=== PATIENT | female | born 1990 | race Caucasian/White ===

== ENCOUNTER → 2017-05-16 | Outpatient (CLI) | payer OTHER ==
[~2017-05-16] MED LIST: METH500T2 PO; SERT100T PO
[2017-05-16 13:23] LABS: PROTEIN/CREATININE RATIO 0.18
== END ==
LOC: LABNPT 11:20
PROVIDERS: ATTEND Obstetrics & Gynecology
DX: O14.03 Mild to moderate pre-eclampsia, third trimester (principal)
CPT/HCPCS: 82570; 84156

== ENCOUNTER 2017-05-18 12:15 | Outpatient (CLI) | payer OTHER ==
[~2017-05-18] VITALS: Ht 162.6 cm; Wt 143.3 kg
[2017-05-18 12:30] VITALS: BP 151/77
[2017-05-18 12:50] VITALS: BP 121/90
[2017-05-18 12:57] LABS: BILIRUBIN,URINE NEGATIVE (NEGATIVE); KETONES,URINE 1+ (NEGATIVE); LEUKOCYTE ESTERASE ,URINE 1+ (NEGATIVE); NITRITE,URINE NEGATIVE (NEGATIVE); PH,URINE 6.5 (5-9); PROTEIN,URINE 1+ (NEGATIVE); UROBILINOGEN,URINE 1 MG/DL (NORMAL)
[2017-05-18 13:00] VITALS: BP 146/70
[2017-05-18] MEDS ORDERED: SERT100T PO (13:00)
[2017-05-18] MEDS ORDERED: INFLUENZA TRIvalent 2017-2018 0.5 ML/45 MCG SYR IM ONE (13:15)
[2017-05-18 13:16] LABS: PROTEIN/CREATININE RATIO 0.16
[2017-05-18 13:23] LABS: BASOPHILS % (AUTO) 0 % (0-10); EOSINOPHILS # (AUTO) 0.2 10^3/uL (0.0-0.3); EOSINOPHILS % (AUTO) 1 % (0-10); LYMPHOCYTES # (AUTO) 1.7 X 10^3 (1.0-4.0); LYMPHOCYTES % (AUTO) 13 % (12-44); MEAN CORPUSCULAR HEMOGLOBIN 30 PG (25-34); MEAN CORPUSCULAR HGB CONC 34 G/DL (32-36); MEAN CORPUSCULAR VOLUME 88 FL (80-99); MEAN PLATELET VOLUME 10.7 FL (7.4-10.4); MONOCYTES % (AUTO) 8 % (0-12); NEUTROPHILS # (AUTO) 9.9 X 10^3 (1.8-7.8); NEUTROPHILS % (AUTO) 78 % (42-75); PLATELET COUNT 347 10^3/uL (130-400); RED BLOOD COUNT 4.29 10^6/uL (4.35-5.85); RED CELL DISTRIBUTION WIDTH 13.7 % (10.0-14.5); WHITE BLOOD COUNT 12.7 10^3/uL (4.3-11.0)
[2017-05-18 13:30] VITALS: BP 128/60
[2017-05-18 13:41] LABS: ALANINE AMINOTRANSFERASE 25 U/L (0-55); ALBUMIN 3.1 GM/DL (3.2-4.5); ANION GAP 10 MMOL/L (5-14); ASPARTATE AMINO TRANSFERASE 19 U/L (5-34); BILIRUBIN,TOTAL 0.4 MG/DL (0.1-1.0); BLOOD UREA NITROGEN 6 MG/DL (7-18); BUN/CREATININE RATIO 10; CALCIUM 8.7 MG/DL (8.5-10.1); CARBON DIOXIDE 21 MMOL/L (21-32); CHLORIDE 107 MMOL/L (98-107); CREATININE SERUM 0.59 MG/DL (0.60-1.30); GFR ESTIMATED > 60; GLUCOSE 132 MG/DL (70-105); LACTATE DEHYDROGENASE 136 U/L (125-220); POTASSIUM 3.8 MMOL/L (3.6-5.0); SODIUM 138 MMOL/L (135-145); TOTAL PROTEIN 6.7 GM/DL (6.4-8.2); URIC ACID 3.8 MG/DL (2.6-7.2)
--- NOTE | 2017-05-21 16:26 | Physician Query-Final Dx ---
JIMI CARTWRIGHT 05/21/17 1626: Clinic Account Progress/Dx Physician Query: Please give diagnosis Date of Service May 18, 2017 at 12:15 ALEXIA SEWELL MD 05/22/17 0742: Clinic Account Progress/Dx DIAGNOSIS: Diagnosis LEXIS JIMI CARTWRIGHT May 21, 2017 16:26 ALEXIA SEWELL MD May 22, 2017 07:42
[2017-05-23] MEDS ORDERED: IBUP-1780 PO (07:48)
[2017-05-23] MEDS ORDERED: DOCU100C37 PO (07:48)
[2017-05-23] MEDS ORDERED: OXYC-465 PO (07:48)
[2017-05-23] MEDS ORDERED: atarax PO (08:10)
== END 2017-05-18 14:00 | disposition home or self-care (01) ==
LOC: WSo 12:15 → LDRP 12:15 → WSo 14:00
PROVIDERS: ATTEND Obstetrics & Gynecology
DX: O13.3 Gestational [pregnancy-induced] hypertension without significant proteinuria, third trimester (principal); Z3A.35 35 weeks gestation of pregnancy
CPT/HCPCS: 36415; 80053; 81000; 82570; 83615; 84156; 84550; 85025; 87088; 99213

== ENCOUNTER 2017-05-22 11:35 | Inpatient (IN) | payer OTHER ==
[2017-05-22] VITALS (24 sets, daily range): BP systolic 124–178; BP diastolic 66–99
[~2017-05-22] VITALS: Ht 162.6 cm; Wt 149.5 kg
[~2017-05-22 11:35] MED LIST changes: -METH500T2 PO
--- NOTE | 2017-05-22 11:48 | History & Physical ---
History and Physical Date Seen by Provider: May 22, 2017 Time Seen by Provider: 11:46 this patient is 26-year-old white female currently at 36-3/7 weeks gestation. She was seen in my clinic on this date with blood pressures of 160s over 110. Complaint of headache and not feeling well. She was sent for my clinic labor and delivery for further evaluation. Patient denies rupture membranes or bleeding. She is morbidly obese. Allergies are to latex Medications are vitamins Medical history, past surgical history, genetic history, family history, and social histories are per the antepartum record HEENT exam is normal Neck supple no lymphadenopathy no thyromegaly Abdomen is markedly morbidly obese nontender. Fundal height is well above the expected for dates due to her body habitus Extremities show no clubbing cyanosis. There is some notable pretibial pitting edema. There is no Homans sign. Pelvic exam is deferred Lab work and vitals are pending Assessment and plan 36-3/7 weeks gestation patient with pretty severe PIH. She has been started on Aldomet but in spite of that her blood pressures have increased. She is being evaluated now for signs symptoms or additional indications of preeclampsia or severe preeclampsia. If that is confirmed we will proceed with her delivery. severe PIH/preeclampsia Allergies and Home Medications Allergies Coded Allergies: latex (Verified Allergy, Mild, 05/18/17) Home Medications Sertraline HCl 100 Mg Tablet, 100 MG PO DAILY, (Reported) ALEXIA SEWELL MD May 22, 2017 11:48
[2017-05-22 12:04] LABS: BASOPHILS % (AUTO) 0 % (0-10); EOSINOPHILS # (AUTO) 0.1 10^3/uL (0.0-0.3); EOSINOPHILS % (AUTO) 1 % (0-10); LYMPHOCYTES # (AUTO) 1.8 X 10^3 (1.0-4.0); LYMPHOCYTES % (AUTO) 13 % (12-44); MEAN CORPUSCULAR HEMOGLOBIN 30 PG (25-34); MEAN CORPUSCULAR HGB CONC 34 G/DL (32-36); MEAN CORPUSCULAR VOLUME 88 FL (80-99); MEAN PLATELET VOLUME 11.2 FL (7.4-10.4); MONOCYTES # (AUTO) 1.2 X 10^3 (0.0-1.0); MONOCYTES % (AUTO) 9 % (0-12); NEUTROPHILS % (AUTO) 76 % (42-75); PLATELET COUNT 332 10^3/uL (130-400); RED BLOOD COUNT 4.26 10^6/uL (4.35-5.85); RED CELL DISTRIBUTION WIDTH 13.9 % (10.0-14.5); WHITE BLOOD COUNT 13.1 10^3/uL (4.3-11.0)
[2017-05-22] MEDS ORDERED: METH500T2 PO (12:12)
[2017-05-22 12:14] LABS: PROTEIN/CREATININE RATIO 0.18
[2017-05-22 12:26] LABS: ALANINE AMINOTRANSFERASE 30 U/L (0-55); ALBUMIN 3.1 GM/DL (3.2-4.5); ANION GAP 9 MMOL/L (5-14); ASPARTATE AMINO TRANSFERASE 20 U/L (5-34); BILIRUBIN,TOTAL 0.3 MG/DL (0.1-1.0); BLOOD UREA NITROGEN 7 MG/DL (7-18); BUN/CREATININE RATIO 11; CALCIUM 8.6 MG/DL (8.5-10.1); CARBON DIOXIDE 21 MMOL/L (21-32); CHLORIDE 108 MMOL/L (98-107); CREATININE SERUM 0.61 MG/DL (0.60-1.30); GFR ESTIMATED > 60; GLUCOSE 97 MG/DL (70-105); LACTATE DEHYDROGENASE 142 U/L (125-220); POTASSIUM 3.7 MMOL/L (3.6-5.0); SODIUM 138 MMOL/L (135-145); TOTAL PROTEIN 6.5 GM/DL (6.4-8.2); URIC ACID 4.1 MG/DL (2.6-7.2)
[2017-05-22] MEDS ORDERED: INFLUENZA TRIvalent 2017-2018 0.5 ML/45 MCG SYR IM ONE (12:45)
[2017-05-22] MEDS ORDERED: ceFAZolin 2 GM/50 ML NS 50 ML IV ONE (17:45)
[2017-05-22] MEDS ORDERED: CITRIC ACID/SOB CIT (BICITRA) 30 ML UDC PO ONE (17:45)
[2017-05-22] MEDS ORDERED: metroNIDAZOLE 500MG/100ML IVPB 100 ML IV ONE (17:45)
[2017-05-22] MEDS ORDERED: METOCLOPRAMIDE INJ 10 MG/2 ML (REGLAN) IV ONE (17:45)
[2017-05-22] MEDS ORDERED: FAMOTIDINE 20MG/2ML IV (PEPCID) IV ONE (17:45)
[2017-05-22] MEDS ORDERED: CATHETER FLUSH 10 ML SYR IV PRN (17:45)
[2017-05-22] MEDS ORDERED: OXYTOCIN/NORMAL SALINE 500 ML IV SCH (17:48)
--- NOTE | 2017-05-22 17:51 | Progress Note-Pre Operative ---
Pre-Operative Progress Note H&P Reviewed The H&P was reviewed, patient examined and no changes noted. Date Seen by Provider: May 22, 2017 Time Seen by Provider: 17:50 Date H&P Reviewed: May 22, 2017 Time H&P Reviewed: 17:50 Pre-Operative Diagnosis: PIH/ labor/previous ALEXIA SEWELL MD May 22, 2017 5:51 pm
--- NOTE | 2017-05-22 17:52 | Progress Note-Post Operative ---
Post-Operative Progess Note Surgeon (s)/Commercial Green Building Designer (s) Surgeon ALEXIA SEWELL MD Commercial Green Building Designer: Sally Greer Pre-Operative Diagnosis PIH/ labor/previous Post-Operative Diagnosis same Procedure & Operative Findings Date of Procedure 05/22/17 Procedure Performed/Findings repeat low transverse delivery Anesthesia Type spinal Estimated Blood Loss Estimated blood loss (mL): 450cc Specimens/Packing Specimens Removed placenta and umbilical cord Packing: none ALEXIA SEWELL MD May 22, 2017 17:52
[2017-05-22] MEDS: LACTATED RINGERS 1,000 ML IV PRN ×2 (17:54→18:15)
[2017-05-22] MEDS ORDERED: LACTATED RINGERS 1,000 ML IV ONE (17:55)
--- NOTE | 2017-05-22 17:55 | Progress Note-Standard ---
Standard Progress Note Progress Notes/Assess & Plan Date Seen by Provider: May 22, 2017 Time Seen by Provider: 17:52 Progress/Assessment & Plan patient now rita every 2 to 4 minutes. she complains of headache. Her blood pressure is up to 150s over 80s. it has been higher than that in clinic today. She did improve some at bed rest. Have her contractions have advanced through the period of observation here delivery. Plan now is to proceed with repeat . Her previous culminated in a at 32 weeks ' gestation due to preeclampsia Vital Signs Date Time Temp Pulse Resp B/P (MAP) Pulse Ox O2 Delivery O2 Flow Rate FiO2 05/22/17 17:15 98.4 20 144/69 Room Air 05/22/17 17:04 109 20 145/75 Room Air 05/22/17 16:49 96 20 144/78 Room Air 05/22/17 16:45 100 20 133/87 Room Air 05/22/17 16:18 125 20 138/71 Room Air 05/22/17 15:50 98 20 140/88 Room Air 05/22/17 15:23 113 20 143/77 Room Air 05/22/17 15:00 86 20 141/78 Room Air 05/22/17 14:31 91 20 144/99 Room Air 05/22/17 14:30 20 Room Air 05/22/17 14:10 97.1 112 20 161/85 Room Air 05/22/17 13:48 89 20 124/89 Room Air 05/22/17 13:32 82 20 136/66 Room Air 05/22/17 13:30 20 Room Air 05/22/17 13:10 97.8 80 20 155/83 Room Air 05/22/17 13:00 81 20 137/94 Room Air 05/22/17 12:30 74 20 132/93 Room Air 05/22/17 12:00 79 20 141/90 Room Air 05/22/17 11:43 98.7 102 20 140/94 Room Air Laboratory Tests Test 05/22/17 11:43 05/22/17 11:55 Range/Units Urine Protein 21 H 6-12 MG/DL Urine Creatinine 114 30-125 MG/DL Urine Protein/Creatinine Ratio 0.18 White Blood Count 13.1 H 4.3-11.0 10^3/uL Red Blood Count 4.26 L 4.35-5.85 10^6/uL Hemoglobin 12.6 11.5-16.0 G/DL Hematocrit 38 35-52 % Mean Corpuscular Volume 88 80-99 FL Mean Corpuscular Hemoglobin 30 25-34 PG Mean Corpuscular Hemoglobin Concent 34 32-36 G/DL Red Cell Distribution Width 13.9 10.0-14.5 % Platelet Count 332 130-400 10^3/uL Mean Platelet Volume 11.2 H 7.4-10.4 FL Neutrophils (%) (Auto) 76 H 42-75 % Lymphocytes (%) (Auto) 13 12-44 % Monocytes (%) (Auto) 9 0-12 % Eosinophils (%) (Auto) 1 0-10 % Basophils (%) (Auto) 0 0-10 % Neutrophils # (Auto) 10.0 H 1.8-7.8 X 10^3 Lymphocytes # (Auto) 1.8 1.0-4.0 X 10^3 Monocytes # (Auto) 1.2 H 0.0-1.0 X 10^3 Eosinophils # (Auto) 0.1 0.0-0.3 10^3/uL Basophils # (Auto) 0.0 0.0-0.1 10^3/uL Sodium Level 138 135-145 MMOL/L Potassium Level 3.7 3.6-5.0 MMOL/L Chloride Level 108 H 98-107 MMOL/L Carbon Dioxide Level 21 21-32 MMOL/L Anion Gap 9 5-14 MMOL/L Blood Urea Nitrogen 7 7-18 MG/DL Creatinine 0.61 0.60-1.30 MG/DL Estimat Glomerular Filtration Rate > 60 BUN/Creatinine Ratio 11 Glucose Level 97 70-105 MG/DL Uric Acid 4.1 2.6-7.2 MG/DL Calcium Level 8.6 8.5-10.1 MG/DL Total Bilirubin 0.3 0.1-1.0 MG/DL Aspartate Amino Transf (AST/SGOT) 20 5-34 U/L Alanine Aminotransferase (ALT/SGPT) 30 0-55 U/L Alkaline Phosphatase 134 40-136 U/L Lactate Dehydrogenase 142 125-220 U/L Total Protein 6.5 6.4-8.2 GM/DL Albumin 3.1 L 3.2-4.5 GM/DL Physical exam is unchanged Assessment and plan 36-3/7 weeks gestation with PIH/preeclampsia. She is also labor and previous . She also is markedly morbidly obese. We will proceed now with repeat delivery. ALEXIA SEWELL MD May 22, 2017 5:55 pm
[2017-05-22] MEDS ORDERED: D5 LR IV SOLUTION 1,000 ML IV ONE (17:56)
[2017-05-22] MEDS ORDERED: KETOROLAC 30 MG/ML VIAL IVP SCH (18:00)
[2017-05-22] MEDS ORDERED: TETANUS,DIPTH,PERTUSS P/F (BOOSTRIX) 0.5 ML VIAL IM ONE (18:00)
[2017-05-22] MEDS ORDERED: ONDANSETRON 4 MG/2 ML (SDV) Z0FRAN IVP PRN (18:00)
[2017-05-22] MEDS ORDERED: MEASLES,MUMPS,RUBELLA 1 EA INJ SC ONE (18:00)
[2017-05-22] MEDS ORDERED: MEPERIDINE (DEMEROL) INJ 100 MG/ML IM PRN (18:00)
[2017-05-22] MEDS ORDERED: oxyCODONE/APAP 10/325MG (PERCOCET 10) TABLET PO PRN (18:00)
[2017-05-22] MEDS ORDERED: PROMETHAZINE INJ 25 MG/ML (PHENERGAN) AMP IM PRN (18:00)
[2017-05-22] MEDS ORDERED: KETOROLAC 30 MG/ML VIAL IVP ONE (18:30)
--- OUTSIDE RECORDS SUMMARY | 2017-05-22 18:32 | XMS REPORT | Continuity of Care Document ---
Author Author [facility] Organization [facility] Address Unknown Phone Unavailable Allergies Medications Problems Procedures Results Encounters ACCT No. Visit Date/Time Discharge Status Pt. Type Provider Facility Loc./Unit Complaint [id number] 03/27/2017 10:02:46 03/27/2017 23: 59:59 CLS Outpatient Ferny Chavez [id number] 02/26/2017 10:55:29 02/26/2017 23: 59:59 CLS Outpatient Ferny Chavez [id number] 01/30/2017 10:27:30 01/30/2017 23: 59:59 CLS Outpatient Ferny Chavez [id number] 01/05/2017 12:20:12 01/05/2017 23: 59:59 CLS Outpatient Gianna Norris [id number] 01/01/2017 11:27:41 01/01/2017 23: 59:59 CLS Outpatient AntoniettaSoni alfredo [id number] 11/27/2016 10:42:52 11/27/2016 23: 59:59 CLS Outpatient AntoniettaSoni alfredo [id number] 11/14/2016 14:33:27 11/14/2016 23: 59:59 CLS Outpatient Soni Mane [id number] 10/31/2016 10:09:55 10/31/2016 23: 59:59 CLS Outpatient Soni Mane [id number] 10/10/2016 10:42:45 10/10/2016 23: 59:59 CLS Outpatient Marisela Hector [id number] 01/20/2016 10:53:02 01/20/2016 23: 59:59 CLS Outpatient Fernanda Joiner [id number] 05/03/2015 16:33:12 05/03/2015 23: 59:59 CLS Outpatient Fernanda Joiner [id number] 03/29/2017 14:10:01 ACT Unknown
--- OUTSIDE RECORDS SUMMARY | 2017-05-22 18:32 | XMS REPORT | Continuity of Care Document ---
Author Author [facility] Organization [facility] Address [facility] [address] [place] [address] Phone Unavailable Support Name Relationship Address Phone YOBANY SY DO Caregiver [address] [place] [address] YOSSI HOBSON Next Of Kin [address], [place] [address] Insurance Providers Payer Name Policy Number Subscriber Name Relationship Self Pay Insurance Kimberly Hobson 18 Self / Same As Patient Advance Directives Directive Response Recorded Date/Time Advance Directives No 12/16/15 1:15pm Living Will No 12/16/15 1:15pm Health Care Proxy No 12/16/15 1:15pm Power of Two Needle Machine Operator for Health Care No 12/16/15 1:16pm Organ, Tissue, or Eye Donor No 12/16/15 1:15pm Do you have a signed organ donor card? No 12/16/15 1:15pm Chief Complaint and Reason for Visit Chief Complaint NEAR SYNCOPE Reason for Visit Heat exhaustion [id number] Near syncope [id number] Problems Active Problems Medical Problem Onset Date Status JOHN (acute kidney injury) Unknown Acute Heat exhaustion Unknown Acute Near syncope Unknown Acute Volume depletion Unknown Acute Medications Current Home Medications Medication Dose Units Route Directions Days/Qty Instructions Start Date Ondansetron* 4 Mg/Tab 4 Mg Oral Every 6 Hours as needed for Nausea/ Vomiting 12 12/16/15 Social History Social History Problem Response Recorded Date/Time Smoking Status Unknown if ever smoked 12/16/2015 4:28pm Tobacco Use Denies Use 12/16/2015 4:28pm Alcohol Use none 12/16/2015 4:28pm Drug Use none 12/16/2015 4:28pm Query Response Start Date Stop Date Smoking Status Unknown if ever smoked Hospital Discharge Instructions No hospital discharge instructions. Plan of Care Discharge Date 12/16/15 4:41pm Condition at Discharge Stable Instructions/Education Provided Dehydration (ED) Acute Kidney Injury (GEN) Heat Exhaustion (ED) Near Syncope (ED) Prescriptions See Medication Section Referrals Your PCP - Functional Status Query Response Date Recorded Paul Coma Scale Total 15 December 16, 2015 1:03pm Patient Behavior Cooperative Appropriate December 16, 2015 1:03pm Allergies, Adverse Reactions, Alerts Allergen Type Severity Reaction Status Last Updated NO KNOWN ALLERGIES Allergy Unknown Active 12/16/15 Immunizations Name Given Type Hx Diphtheria, Pertussis, Tetanus Vaccination Unknown Historical Hx Influenza Vaccination No Historical Hx Pneumococcal Vaccination No Historical Vital Signs Acute Vital Signs Vital Response Date/Time Temperature (Fahrenheit) 98 degrees F (97.6 - 99.5) 12/16/2015 4:32pm Temperature Source Temporal Artery 12/16/2015 4:32pm Pulse Rate (adult) 64 bpm (60 - 90) 12/16/2015 4:32pm Respiratory Rate 21 bpm (12 - 24) 12/16/2015 4:32pm Blood Pressure 133/48 mm Hg 12/16/2015 4:32pm O2 Sat by Pulse Oximetry 98 % (90 - 100) 12/16/2015 4:32pm Oxygen Delivery Method 12/16/2015 4:32pm Pain Location Body Site Modifier 12/16/2015 3:14pm Height 5 ft 4 in Weight 370 lb Body Mass Index 63.0 kg/m^2 Results Laboratory Results Test Name Result Units Flags Reference Collection Date/Time Result Date/ Time Comments White Blood Count 10.9 K/uL H 4.8-10.8 12/16/2015 1:25pm 12/16/2015 1: 39pm Red Blood Count 4.23 M/uL 4.20-5.40 12/16/2015 1:25pm 12/16/2015 1: 39pm Hemoglobin 13.4 gm/dL 12.0-16.0 12/16/2015 1:pm 12/16/2015 1:39pm Hematocrit 37.4 % 37.0-47.0 12/16/2015 1:25pm 12/16/2015 1:39pm Mean Corpuscular Volume 88.4 fL 81.0-99.0 12/16/2015 1:25pm 12/16/2015 1:39pm Mean Corpuscular Hemoglobin 31.6 pg H 27.0-31.0 12/16/2015 1:25pm 2015 1:39pm Mean Corpuscular Hemoglobin Concent 35.8 g/dL 30.0-37.0 12/16/2015 1: 12/16/2015 1:39pm Red Cell Distribution Width 14.3 % 11.5-14.5 12/16/2015 1:2015 1:39pm Platelet Count 339 K/uL 130-400 12/16/2015 1:12/16/2015 1:39pm Mean Platelet Volume 8.6 fL 7.4-10.4 12/16/2015 1:12/16/2015 1: 39pm Neutrophils (%) (Auto) 80.4 % H 42.2-75.2 12/16/2015 1:12/16/2015 1 :39pm Lymphocytes (%) (Auto) 13.3 % L 20.5-51.1 12/16/2015 1:12/16/2015 1 :39pm Monocytes (%) (Auto) 4.4 % 1.7-9.3 12/16/2015 1:12/16/2015 1:39pm Eosinophils (%) (Auto) 1.6 % 0-3 12/16/2015 1:12/16/2015 1:39pm Basophils (%) (Auto) 0.5 % 0.0-1.0 12/16/2015 1:12/16/2015 1:39pm Neutrophils # (Auto) 8.8 K/uL H 2.0-6.9 12/16/2015 1:12/16/2015 1: 39pm Lymphocytes # (Auto) 1.5 K/uL 1.2-3.4 12/16/2015 1:12/16/2015 1: 39pm Monocytes # (Auto) 0.5 K/uL 0.1-0.6 12/16/2015 1:12/16/2015 1: 39pm Eosinophils # (Auto) 0.2 K/uL 0.0-0.7 12/16/2015 1:12/16/2015 1: 39pm Basophils # (Auto) 0.1 K/uL 0.0-0.2 12/16/2015 1:12/16/2015 1: 39pm Random Glucose 91 mg/dL 70-110 12/16/2015 1:12/16/2015 1:50pm Blood Urea Nitrogen 25 mg/dL H 7-18 12/16/2015 1:12/16/2015 1:50pm Creatinine 1.8 mg/dL H 0.55-1.02 12/16/2015 1:12/16/2015 1:50pm Sodium Level 141 mEq/L 136-145 12/16/2015 1:12/16/2015 1:50pm Potassium Level 3.7 mEq/L 3.5-5.0 12/16/2015 1:12/16/2015 1:50pm Chloride Level 106 mEq/L 98-107 12/16/2015 1:12/16/2015 1:50pm Carbon Dioxide Level 19.4 mEq/L L 21-32 12/16/2015 1:12/16/2015 1: 50pm Calcium Level 9.0 mg/dL 8.8-10.5 12/16/2015 1:12/16/2015 1:50pm Total Protein 7.6 gm/dL 6.4-8.2 12/16/2015 1:12/16/2015 1:50pm Albumin 3.9 gm/dL 3.4-5.0 12/16/2015 1:12/16/2015 1:50pm Total Bilirubin 0.33 mg/dL 0.00-1.00 12/16/2015 1:12/16/2015 1: 50pm Aspartate Amino Transf (AST/SGOT) 27 U/L 15-37 12/16/2015 1:2015 1:50pm Alanine Aminotransferase (ALT/SGPT) 48 U/L 12-78 12/16/2015 1: 1:50pm Total Alkaline Phosphatase 78 U/L 46-116 12/16/2015 1:12/16/2015 1 :50pm Urine Color DARK YELLOW YELLOW 12/16/2015 2:12/16/2015 2:27pm Urine Appearance SL CLOUDY H CLEAR 12/16/2015 2:12/16/2015 2: 27pm Urine Glucose (UA) NEGATIVE mg/dL NEGATIVE 12/16/2015 2:2015 2:27pm Urine Bilirubin 1+ (Small) H NEGATIVE 12/16/2015 2:16pm 12/16/2015 2: 27pm Urine Ketones TRACE mg/dL H NEGATIVE 12/16/2015 2:16pm 12/16/2015 2: 27pm Urine Specific Tebbetts 1.025 1.010-1.025 12/16/2015 2:16pm 2015 2:27pm Urine Occult Blood NEGATIVE NEGATIVE 12/16/2015 2:16pm 12/16/2015 2: 27pm Urine pH 5.5 5.0-8.0 12/16/2015 2:16pm 12/16/2015 2:27pm Urine Protein NEGATIVE mg/dL NEGATIVE 12/16/2015 2:16pm 12/16/2015 2: 27pm Urine Urobilinogen 0.2 mg/dL E.U./dL 0.2-1.0 12/16/2015 2:16pm 2015 2:27pm Urine Nitrate NEGATIVE NEGATIVE 12/16/2015 2:16pm 12/16/2015 2:27pm Urine Leukocyte Esterase NEGATIVE NEGATIVE 12/16/2015 2:16pm 2015 2:27pm Urine RBC NEGATIVE /hpf 0 12/16/2015 2:16pm 12/16/2015 2:33pm Urine WBC 1-2 /hpf 0-4 12/16/2015 2:16pm 12/16/2015 2:33pm Urine Squamous Epithelial Cells 2-4 /hpf H 0-1 12/16/2015 2:16pm 2015 2:33pm Urine Bacteria NEGATIVE NEGATIVE 12/16/2015 2:16pm 12/16/2015 2:33pm Urine Hyaline Casts 1-2 /lpf H 0 12/16/2015 2:16pm 12/16/2015 2:33pm Urine Mucus TRACE NEGATIVE 12/16/2015 2:16pm 12/16/2015 2:33pm Urine HCG, Qualitative NEGATIVE NEG 12/16/2015 2:16pm 12/16/2015 2: 28pm Glomerular Filtration Rate Calc 36.1 mL/min 12/16/2015 1:25pm 2015 1:50pm Procedures Procedure Status Date Provider(s) Portable x-ray of chest Active 12/16/15 YOBANY SY DO Encounters Encounter Location Arrival/Admit Date Discharge/Depart Date Attending Provider Departed Emergency Room [place] 12/16/15 1:10pm 12/16/15 4:41pm YOBANY SY DO Recent Diagnosis
[2017-05-22] MEDS ORDERED: fentaNYL INJECTION 100 MCG/2 ML AMP ONE (18:40)
[2017-05-22] MEDS ORDERED: morphine PF (DURAMORPH) 10 MG/10 ML AMP ONE (18:40)
[2017-05-22] MEDS ORDERED: KETOROLAC 30 MG/ML VIAL ONE (19:54)
[2017-05-22] MEDS ORDERED: OXYTOCIN/NORMAL SALINE 1,000 ML IV ONE (19:54)
[2017-05-22] MEDS ORDERED: SERTRALINE 100 MG (ZOLOFT) TAB PO SCH (21:00)
[2017-05-22] MEDS: DOCUSATE SODIUM 100 MG (COLACE) CAP PO SCH (23:23)
[2017-05-23] MEDS: KETOROLAC 30 MG/ML VIAL IVP SCH ×2 (02:15→08:20)
--- NOTE | 2017-05-23 03:07 | OPERATIVE REPORT ---
DATE OF SERVICE: 05/22/2017 PREOPERATIVE DIAGNOSES: A 36 and 3/7 weeks' gestation with -induced hypertension and labor and a previous . POSTOPERATIVE DIAGNOSES: A 36 and 3/7 weeks' gestation with -induced hypertension and labor and a previous . OPERATIVE PROCEDURE: Repeat low transverse delivery of a viable male infant with Apgars of 3, 6, and 7 at 1, 5 and 10 minutes. Weight was 7 pounds 10 ounces. Cord blood pH of 7.09 and a time of 19:40. OPERATIVE DESCRIPTION: With the patient in the supine position under satisfactory spinal anesthesia, she was prepped and draped in the usual fashion for abdominal surgery. Navarro catheter was placed in the urinary bladder and left to dependent drainage. A Pfannenstiel incision made through the skin with a scalpel. The patient's abdomen was entered in the usual manner. Bladder retractor placed in the position and a clean scalpel used to make a 4 cm hysterotomy incision transversally across the lower uterine segment. That incision was extended by blunt dissection. There were significant adhesions on the anterior wall of the uterus to the omentum and to the anterior abdominal wall. These were taken down with very careful dissection prior to hysterotomy. On hysterotomy, copious clear fluid released. Hyde forceps were applied to facilitate delivery of the viable male with stats as noted above. The infant was bulb suctioned on delivery of the head and again on completion of delivery, the was then, after the cord was doubly clamped and cut, passed to pediatric nurse in attendance for delivery. Cord bloods were obtained. The placenta delivered spontaneously Costa. It was normal with a 3-vessel cord, although it did seem to be somewhat heavily calcified. The uterus was exteriorized, the interior wiped clean with a wet laparotomy sponge. Uterine incision closed with a running lock suture of 2-0 Vicryl. Hemostasis was satisfactory. The uterus was returned to the abdominal cavity. All blood clot and debris removed in the abdominal cavity. With sponge and needle counts correct and hemostasis assured, the anterior parietal peritoneum was closed with a running suture of 2-0 Vicryl. The rectus muscles were closed with that suture as well. Rectus fascia was closed with 2-0 Vicryl. Subcutaneous tissue was closed with 2-0 Vicryl and then the skin was stapled. Sponge and needle counts were correct on completion of the procedure. Estimated blood loss was around 450 mL. The patient tolerated the procedure well and was transferred to the recovery room in stable condition. The infant had been taken stable to the full term nursery under the care of the pediatric nurse. Dr. Barcenas had been called to assess the baby due to its somewhat lethargic entry into the world. Job ID: [id number] DocumentID: [id number] Dictated Date: 05/22/2017 20:28:33 Automatic I Threading Machine Feeder Date: 05/23/2017 03:06:56 Dictated By: ALEXIA SEWELL MD
[2017-05-23 04:40] VITALS: BP 124/79
[2017-05-23] MEDS ORDERED: diphenhydrAMINE 25 MG TAB (BENADRYL) PO PRN (04:45)
[2017-05-23 05:23] LABS: BASOPHILS % (AUTO) 0 % (0-10); EOSINOPHILS # (AUTO) 0.1 10^3/uL (0.0-0.3); EOSINOPHILS % (AUTO) 1 % (0-10); LYMPHOCYTES # (AUTO) 1.9 X 10^3 (1.0-4.0); LYMPHOCYTES % (AUTO) 15 % (12-44); MEAN CORPUSCULAR HEMOGLOBIN 30 PG (25-34); MEAN CORPUSCULAR HGB CONC 33 G/DL (32-36); MEAN CORPUSCULAR VOLUME 89 FL (80-99); MEAN PLATELET VOLUME 10.5 FL (7.4-10.4); MONOCYTES % (AUTO) 8 % (0-12); NEUTROPHILS # (AUTO) 9.8 X 10^3 (1.8-7.8); NEUTROPHILS % (AUTO) 76 % (42-75); PLATELET COUNT 258 10^3/uL (130-400); RED BLOOD COUNT 3.79 10^6/uL (4.35-5.85); RED CELL DISTRIBUTION WIDTH 13.9 % (10.0-14.5); WHITE BLOOD COUNT 12.8 10^3/uL (4.3-11.0)
[2017-05-23] MEDS ORDERED: DOCU100C37 PO (07:48)
[2017-05-23] MEDS ORDERED: OXYC-465 PO (07:48)
[2017-05-23] MEDS ORDERED: IBUP-1780 PO (07:48)
--- NOTE | 2017-05-23 07:53 | Discharge Instructions ---
Discharge Instructions Discharge Medications New, Converted or Re-Newed RX: RX on Chart Patient Instructions Patient Instructions: as directed Return to The Hospital For: as directed Activity & Diet Discharge Diet: No Restrictions Activity as Tolerated: No Orders-Post D/C & Referrals Follow Up Appt: RTC on or Sunday, May 24 or for incision check and staple removal. Call to make follow up appt. for patient in 4 weeks. do not removed surgical rai Activity Per routine post instructions. Diet as tolerated Patient may shower or tub bathe as desired. Continue home meds ALEXIA SEWELL MD May 23, 2017 7:53 am
--- NOTE | 2017-05-23 07:55 | Progress Note-Standard ---
Standard Progress Note Progress Notes/Assess & Plan Date Seen by Provider: May 23, 2017 Time Seen by Provider: 07:54 Progress/Assessment & Plan patient now rita every 2 to 4 minutes. she complains of headache. Her blood pressure is up to 150s over 80s. it has been higher than that in clinic today. She did improve some at bed rest. Have her contractions have advanced through the period of observation here delivery. Plan now is to proceed with repeat . Her previous culminated in a at 32 weeks ' gestation due to preeclampsia Vital Signs Date Time Temp Pulse Resp B/P (MAP) Pulse Ox O2 Delivery O2 Flow Rate FiO2 05/22/17 17:15 98.4 20 144/69 Room Air 05/22/17 17:04 109 20 145/75 Room Air 05/22/17 16:49 96 20 144/78 Room Air 05/22/17 16:45 100 20 133/87 Room Air 05/22/17 16:18 125 20 138/71 Room Air 05/22/17 15:50 98 20 140/88 Room Air 05/22/17 15:23 113 20 143/77 Room Air 05/22/17 15:00 86 20 141/78 Room Air 05/22/17 14:31 91 20 144/99 Room Air 05/22/17 14:30 20 Room Air 05/22/17 14:10 97.1 112 20 161/85 Room Air 05/22/17 13:48 89 20 124/89 Room Air 05/22/17 13:32 82 20 136/66 Room Air 05/22/17 13:30 20 Room Air 05/22/17 13:10 97.8 80 20 155/83 Room Air 05/22/17 13:00 81 20 137/94 Room Air 05/22/17 12:30 74 20 132/93 Room Air 05/22/17 12:00 79 20 141/90 Room Air 05/22/17 11:43 98.7 102 20 140/94 Room Air Laboratory Tests Test 05/22/17 11:43 05/22/17 11:55 Range/Units Urine Protein 21 H 6-12 MG/DL Urine Creatinine 114 30-125 MG/DL Urine Protein/Creatinine Ratio 0.18 White Blood Count 13.1 H 4.3-11.0 10^3/uL Red Blood Count 4.26 L 4.35-5.85 10^6/uL Hemoglobin 12.6 11.5-16.0 G/DL Hematocrit 38 35-52 % Mean Corpuscular Volume 88 80-99 FL Mean Corpuscular Hemoglobin 30 25-34 PG Mean Corpuscular Hemoglobin Concent 34 32-36 G/DL Red Cell Distribution Width 13.9 10.0-14.5 % Platelet Count 332 130-400 10^3/uL Mean Platelet Volume 11.2 H 7.4-10.4 FL Neutrophils (%) (Auto) 76 H 42-75 % Lymphocytes (%) (Auto) 13 12-44 % Monocytes (%) (Auto) 9 0-12 % Eosinophils (%) (Auto) 1 0-10 % Basophils (%) (Auto) 0 0-10 % Neutrophils # (Auto) 10.0 H 1.8-7.8 X 10^3 Lymphocytes # (Auto) 1.8 1.0-4.0 X 10^3 Monocytes # (Auto) 1.2 H 0.0-1.0 X 10^3 Eosinophils # (Auto) 0.1 0.0-0.3 10^3/uL Basophils # (Auto) 0.0 0.0-0.1 10^3/uL Sodium Level 138 135-145 MMOL/L Potassium Level 3.7 3.6-5.0 MMOL/L Chloride Level 108 H 98-107 MMOL/L Carbon Dioxide Level 21 21-32 MMOL/L Anion Gap 9 5-14 MMOL/L Blood Urea Nitrogen 7 7-18 MG/DL Creatinine 0.61 0.60-1.30 MG/DL Estimat Glomerular Filtration Rate > 60 BUN/Creatinine Ratio 11 Glucose Level 97 70-105 MG/DL Uric Acid 4.1 2.6-7.2 MG/DL Calcium Level 8.6 8.5-10.1 MG/DL Total Bilirubin 0.3 0.1-1.0 MG/DL Aspartate Amino Transf (AST/SGOT) 20 5-34 U/L Alanine Aminotransferase (ALT/SGPT) 30 0-55 U/L Alkaline Phosphatase 134 40-136 U/L Lactate Dehydrogenase 142 125-220 U/L Total Protein 6.5 6.4-8.2 GM/DL Albumin 3.1 L 3.2-4.5 GM/DL Physical exam is unchanged Assessment and plan 36-3/7 weeks gestation with PIH/preeclampsia. She is also labor and previous . She also is markedly morbidly obese. We will proceed now with repeat delivery. May 23, 2017 patient is without complaint. She is ambulating, voiding, told feel well, has good pain control. This patient's baby was transferred to [facility] last evening. she is requesting discharge. She denies headache, denies shortness of breath, denies nausea vomiting, denies chest pain. Vital Signs Date Time Temp Pulse Resp B/P (MAP) Pulse Ox O2 Delivery O2 Flow Rate FiO2 05/23/17 04:40 96.8 85 18 124/79 96 Room Air 05/22/17 23:20 98.2 68 20 131/78 97 Room Air 05/22/17 18:58 93 20 138/74 Room Air 05/22/17 18:45 87 20 178/95 Room Air 05/22/17 18:30 98.9 93 20 136/74 Room Air 05/22/17 18:27 93 20 141/66 Room Air 05/22/17 18:00 89 20 145/85 Room Air 05/22/17 17:45 103 20 158/71 Room Air 05/22/17 17:15 98.4 20 144/69 Room Air 05/22/17 17:04 109 20 145/75 Room Air 05/22/17 16:49 96 20 144/78 Room Air 05/22/17 16:45 100 20 133/87 Room Air 05/22/17 16:18 125 20 138/71 Room Air 05/22/17 15:50 98 20 140/88 Room Air 05/22/17 15:23 113 20 143/77 Room Air 05/22/17 15:00 86 20 141/78 Room Air 05/22/17 14:31 91 20 144/99 Room Air 05/22/17 14:30 20 Room Air 05/22/17 14:10 97.1 112 20 161/85 Room Air 05/22/17 13:48 89 20 124/89 Room Air 05/22/17 13:32 82 20 136/66 Room Air 05/22/17 13:30 20 Room Air 05/22/17 13:10 97.8 80 20 155/83 Room Air 05/22/17 13:00 81 20 137/94 Room Air 05/22/17 12:30 74 20 132/93 Room Air 05/22/17 12:00 79 20 141/90 Room Air 05/22/17 11:43 98.7 102 20 140/94 Room Air vital signs are stable. Blood pressures are improved. Abdomen is benign. Alvaro show no clubbing cyanosis. There is no Homans sign. Assessment and plan postoperative day number 1 status post repeat delivery doing well. Plan is for discharge home with follow-up in clinic Final Diagnosis 36-3/7 weeks gestation repeat ALEXIA SEWELL MD May 23, 2017 7:55 am
[2017-05-23] MEDS ORDERED: atarax PO (08:10)
[2017-05-23] MEDS ORDERED: hydrOXYzine (VISTARIL) 25 MG CAP PO PRN (08:15)
[2017-05-23] MEDS: DOCUSATE SODIUM 100 MG (COLACE) CAP PO SCH (08:20)
[2017-05-23] MEDS ORDERED: INFLUENZA TRIvalent 2017-2018 0.5 ML/45 MCG SYR IM ONE ×2 (10:04→12:11)
[2017-05-23] MEDS ORDERED: TETANUS,DIPTH,PERTUSS P/F (BOOSTRIX) 0.5 ML VIAL IM ONE (10:04)
[2017-05-23 11:33] VITALS: BP 114/61
[2017-05-23] MEDS ORDERED: IBUPROFEN 800 MG (MOTRIN) TAB PO SCH (18:00)
== END 2017-05-23 10:40 | disposition home or self-care (01) | DRG 765 ==
LOC: LDRP 11:35 → WSo 11:35 → LDRP 17:42 → WSo 18:27 → LDRP 21:00
PROVIDERS: ADMIT Obstetrics & Gynecology; ATTEND Obstetrics & Gynecology
PROC: 10D00Z1 Extraction of Products of Conception, Low, Open Approach (ICD-10-PCS; principal; 2017-05-22 19:01)
DX: O14.93 Unspecified pre-eclampsia, third trimester (principal); O99.213 Obesity complicating pregnancy, third trimester; E66.01 Morbid (severe) obesity due to excess calories; Z68.43 Body mass index [BMI] 50.0-59.9, adult; O34.211 Maternal care for low transverse scar from previous cesarean delivery; Z3A.36 36 weeks gestation of pregnancy; Z37.0 Single live birth; Z23 Encounter for immunization
CPT/HCPCS: 36415; 80053; 82570; 83615; 84156; 84550; 85025; 86850; 86900; 86901; 90715; 94664

== ENCOUNTER → 2018-06-05 | Outpatient (CLI) | payer OTHER ==
[~2018-06-05] MED LIST changes: +DOCU100C37 PO; +IBUP-1780 PO; +METH500T23 PO; +OXYC-465 PO; +atarax PO
== END | disposition home or self-care (01) ==
LOC: PREOP 05:38
PROVIDERS: ATTEND Obstetrics & Gynecology
DX: Z01.818 Encounter for other preprocedural examination (principal)